=== PATIENT | male | born 1990 | race Two or more races ===

== ENCOUNTER 2024-04-21 19:46 | Emergency (ER) | payer MEDICAID ==
[~2024-04-21] VITALS: Ht 172.7 cm; Wt 81.2 kg
[2024-04-21] MEDS ORDERED: TDAP [DIPH/PERTUSSIS/TET] 0.5 ML VIAL IM ONE (20:22)
[2024-04-21] MEDS ORDERED: LIDOCAINE 1%-EPI 1:100,000 20 ML VIAL ONE (20:22)
[2024-04-21] MEDS: LIDOCAINE 1%-EPI 1:100,000 20 ML VIAL TP ONE (20:30)
[2024-04-21] MEDS: TDAP [DIPH/PERTUSSIS/TET] 0.5 ML VIAL IM ONE (20:30)
[2024-04-21] MEDS ORDERED: IBUP-1953 PO (20:50)
[2024-04-21] MEDS ORDERED: CEPH500T PO (20:50)
[2024-04-21 21:07] VITALS: BP 137/85; TEMP 98.7; O2SAT 98
== END 2024-04-21 21:08 | disposition home or self-care (01) ==
LOC: ER 19:55
DX: S61.412A Laceration without foreign body of left hand, initial encounter (principal); F19.10 Other psychoactive substance abuse, uncomplicated; W26.0XXA Contact with knife, initial encounter; Y93.89 Activity, other specified; Y92.090 Kitchen in other non-institutional residence as the place of occurrence of the external cause; Y99.8 Other external cause status
CPT/HCPCS: 99284; 12041; 90471; 90715; J3490